=== PATIENT | female | born 1990 | race Two or more races ===

== ENCOUNTER 2024-10-26 13:53 | Outpatient (AMB) | payer MEDICAID, SELFPAY ==
--- NOTE | 2024-10-26 14:03 | PD.GSCLVISIT ---
V[facility] Sign[facility] - [facility] 10/26/24 14:04 Height 1.63 m Height Method Measured Weight 122.668 kg Weight Measurement Method Standing Scale BMI 46.4 BP 112/77 Blood Pressure Source Automatic Cuff Blood Pressure Location Left Upper Arm Position Sitting Respiration 18 Pulse 73 Pulse Source Monitor Temp 97.4 F Temp Source Temporal Artery Scan Pulse Oximetry (%) 96 Oxygen Delivery Method Room Air Med/Allergies Allergies & Medications Allergies No Known Allergies Allergy (Verified 10/26/24 14:05) Medication Reconciliation Unobtainable 10/26/24 [History Confirmed 10/26/24] MA Intake Visit Data Collection New Patient or Established: Established Patient (seen at [facility] within 3 years) Seen by Clinical Staff ONLY (RN/MA): No Reason for Visit:: REFERRAL GALLSTONES Pain Present Currently: No Pain Location: Abdomen Pain Scale Used: Mcmahon-Savage/Numerical Aeronautical Project Engineer Required: Yes PCP or OBGYN visit in last 3 months: Yes Hx Now: No Do You Feel Safe at Home: Yes Authorities Contacted: N/A Smoking Status Smoking Status: Never smoker Immunization / Flu Flu Vaccine in the Last 12 Months: Yes Flu Vaccine Exclusion Criteria: No Exclusion Criteria Past Medical History Social History SMOKING STATUS: Smoking status: Never smoker HPI HPI Narrative 34F presenting with symptomatic cholelithiasis. Patient reports that she has had epigastric pain on and off for years, worsened with eating fatty/greasy foods, and associated with nausea and diarrhea. She denies any fevers. Patient has gone to the ER in [place] and has been told more than once that she has gallstones PMH: Obesity PSH: C-sections Meds: Ibuprofen as needed Allergies: NKDA Social history: Non-smoker Family history: Both grandfathers and an aunt had pancreatic cancer ROS Review of Systems Systems Reviewed: All systems reviewed, normal except as documented Objective/Exam General General Appearance: alert, cooperative and well groomed Resp Respiratory exam: Absent respiratory distress Abdominal Abdominal exam: Present soft; Absent distention or tenderness Assessment & Plan Diagnosis / Problem List (1) Symptomatic cholelithiasis: Status: Acute Assessment & Plan: 34F presenting with signs and symptoms of symptomatic cholelithiasis. I explained benefits/risks of surgery including need for conversion to open, bleeding, infection, injury to nearby structures requiring further procedures which could mean a major biliary reconstruction which would require transfer to a tertiary hospital. I also enumerated risks of postoperative hernia and diarrhea. All questions were answered and patient is agreeable to proceeding Plan: Follow-up ultrasound, patient will have results faxed Will schedule laparoscopic cholecystectomy, possible open MARGARET Office Procedures GNS Level of Care Nursing/Assessment Patient Status: Established Patient Nursing Assessment/Reassesment: Medication Reconciliation, Update PMH in EMR and Vital Signs Coordination of Care: Complex Care and Chronic Disease 1-5, Consent,records obtained, informed consent, Education Simp Pt/Fam, Results/Orders obtained and Staff clarify orders Special Needs: Language special needs Established Patient Charge Established Patient Point Assignment: 90 Established Patient Point Charge: EP Level 3 (80-115) Patient Portal Questionaires Social History Tobacco History Smoking Status: Never smoker Domestic Abuse History Do You Feel Safe at Home: Yes Review of Systems Report any current symptoms Only answer those that you have currently: Past Medical History Past Medical History Have you ever been diagnosed with any of the following:
[2024-10-26 14:04] VITALS: BP 112/77; PULSE 73; RESP 18; TEMP 36.3; O2SAT 96; BMI 46.4
== END 2024-10-26 14:38 | disposition home or self-care (01) ==
PROVIDERS: Supervising Provider Surgery; Visit Provider Surgery
DX: K80.20 Calculus of gallbladder without cholecystitis without obstruction (principal); E66.9 Obesity, unspecified; Z68.42 Body mass index [BMI] 45.0-49.9, adult
CPT/HCPCS: 99213; G0463

== ENCOUNTER 2024-11-11 06:00 | Day surgery (SDC) | payer MEDICAID, SELFPAY ==
[2024-11-10 15:19] VITALS: BMI 41.1
[2024-11-10 17:51] LABS: Anion Gap 9 (7-16); BUN/Creatinine Ratio 11 Ratio (12-20); Blood Urea Nitrogen 8 mg/dL (9-23); Calcium 8.9 mg/dL (8.3-10.6); Carbon Dioxide 24.6 mMol/L (20.0-31.0); Chloride 105 mMol/L (98-107); Creatinine (Component) 0.7 mg/dL (0.6-1.3); Estimated Creatinine Clearance 136.5 mL/min (>60); Glucose 88 mg/dL (74-106); Osmolality,Calculated 274 (275-295); Potassium 4.0 mMol/L (3.4-5.1); Sodium 139 mMol/L (136-145); eGFR > 60 See Note
[2024-11-10 17:52] LABS: HCG,Qualitative Serum Negative
[2024-11-10 17:55] LABS: Basophils # (Auto) 0.1 Thou/mm3 (0.0-0.2); Basophils % (Auto) 0 % (0-2.5); Eosinophils # (Auto) 0.3 Thou/mm3 (0.0-0.5); Eosinophils % (Auto) 2 % (0-10); Hematocrit 39.8 % (36.0-46.0); Hemoglobin 13.2 g/dL (12.0-16.0); Immature Granulocytes Auto 0.06 Thou/mm3 (0.00-0.00); Lymphocytes # (Auto) 2.3 Thou/mm3 (1.0-4.8); Lymphocytes % (Auto) 17 % (10-50); Mean Corpuscular HGB Conc 33.2 g/dl (31.0-37.0); Mean Corpuscular Hemoglobin 29.1 pg (25.0-35.0); Mean Corpuscular Volume 88 fL (80-100); Monocytes # (Auto) 0.7 Thou/mm3 (0.0-0.8); Monocytes % (Auto) 5 % (0-12); Neutrophils # (Auto) 10.3 Thou/mm3 (1.8-7.7); Neutrophils % (Auto) 76 % (37-80); Nucleated Red Blood Cell # 0.00 Thou/mm3 (0.00-0.00); Nucleated Red Blood Cell % 0 /100 WBC (0); Platelet Count 301 Thou/mm3 (140-440); RDW Standard Deviation 42.7 fL (36.4-46.3); Red Blood Count 4.54 Miln/mm3 (4.00-5.20); White Blood Count 13.6 Thou/mm3 (3.6-11.0)
[2024-11-10 18:09] LABS: INR 0.9 (0.9-1.3); Partial Thromboplastin Time 27.6 Seconds (22.0-36.0); Prothrombin Time 10.1 Seconds (9.0-12.2)
[2024-11-11] VITALS (9 sets, daily range): BP systolic 115–152; BP diastolic 60–98; PULSE 76–110; RESP 12–21; TEMP 36.2–36.7; O2SAT 96–100; BMI 46.7
[2024-11-11] MEDS: RINGERS LACTATED 1000 ML 1,000 ML 20 ML IV (06:59)
--- NOTE | 2024-11-11 10:13 | PD.SUROPNT ---
Date of Procedure 11/11/24 Pre Op Diagnosis Symptomatic cholelithiasis Post Op Diagnosis Same Procedure Laparoscopic cholecystectomy Findings Gallbladder with large stone Procedure Description After discussion of risks and benefits, patient was brought to the operating room, SCDs were placed and general anesthesia was induced. She received preoperative antibiotics and was prepped and draped in usual sterile fashion. After timeout a supraumbilical incision was made with a #15 blade and the skin was elevated with towel clamps. A Veress needle was placed into the incision but it did not reach the peritoneum so long Veress needle was used. Proper positioning was confirmed with a drop test and the abdomen was insufflated to 15 mmHg. At that point the Veress needle was exchanged for a 5 mm camera using Visiport technique. There were no signs of injury from the point of entry. 3 additional ports were placed under direct vision, one 12 mm at the epigastrium, one 5 mm right subcostal and one 5 mm right anterior axillary line. Patient was placed in reverse Trendelenburg. The fundus of the gallbladder was grasped and retracted cephalad and the infundibulum was grasped and retracted laterally. Using combination of blunt dissection and electrocautery the critical view of safety was achieved and the cystic duct and cystic artery were clipped and transected in the usual fashion. The gallbladder was removed from gallbladder bed using electrocautery. There was some bleeding from the gallbladder bed which was controlled with electrocautery and direct pressure. Patient was also given TXA and hemostasis was reinforced with Surgicel powder. The specimen was removed in an Endo Catch bag via the epigastric port and the epigastric fascia was closed with a 0 Vicryl suture using a Avelino-Mode. Pneumoperitoneum was released and ports were removed under direct vision. Incisions were irrigated and infiltrated with half percent Marcaine for a total of 30 cc. Incisions were closed with 4-0 Monocryl and reinforced with Dermabond. Patient was extubated and brought to PACU in stable condition Pathology / specimen Other (Gallbladder) Estimated Blood Loss 200 Surgeon Rachel Mathias MD Surgical Staff Operation Date: 11/11/24 08:45 Case Staff ENGLISH LANGUAGE LEARNER TUTOR: Heber Delacruz RN First Assistant: Monisha Lechuga
--- NOTE | 2024-11-11 10:20 | SUR.PHASEI ---
1020: Pt. wakes to name then drifts back to sleep, vitals stable, breathing unlabored, no complaint of pain or nausea, x4 dermabond sites to ABD CDI, no active bleed noted, report recieved from Khoa MAY and Lisandro CLEMENTS.
--- NOTE | 2024-11-11 10:20 | ESDS_ITS ---
Planned Discharge Date 11/11/24 DS: Providers Provider Primary care physician: Physician No Primary/Family Attending Provider on Admission: Rachel Mathias MD Attending Provider on DC: Rachel Mathias MD Discharging Provider: Rachel Mathias MD Diagnosis Discharge Diagnosis (1) Symptomatic cholelithiasis: Status: Acute Problem List Completed Was Problem List Reviewed/Reconciled?: Yes Exam Vital Signs Temp Pulse Resp BP Pulse Ox 98.0 F 77 21 H 118/60 96 11/11/24 06:46 11/11/24 06:46 11/11/24 06:46 11/11/24 06:46 11/11/24 06:46 Discharge Plan Plan Patient Disposition: HOME (Self Care) Prescriptions/Referrals Prescriptions/Med Rec: New oxycodone-acetaminophen [Percocet] 5-325 mg tablet 1 tab PO Q4HR MDD 6 tabs PRN (Reason: pain) Qty: 10 0RF Rx Instructions: Take 1 tablet as needed every 4-6 hours for moderate to severe pain Referrals: No Primary/Family,Physician [Primary Care Provider] - Rachel Mathias MD [Physician] - (You will receive a phone call to confirm a follow-up appointment with me in 2 weeks) Patient/Caregiver Discharge Instructions Other Discharge Activity Instructions:: Avoid lifting objects greater than 10 pounds for 6 weeks You may resume showering in 2 days, on 11/13 It is okay to get incisions wet at that time, pat dry after Avoid bathing or swimming for 2 weeks During the surgery we fill your abdomen with air in order to see the structures. Some of this air tends to linger and cause pain that is referred to the shoulder as well as pain with deep breaths. This will get better with time. Being out of bed and walking will help the air to absorb faster If you develop worsening pain, nausea/vomiting, fever or signs of jaundice please seek care in ER Starting tomorrow, 11/12 you may take ibuprofen as needed between doses of Percocet or instead of Percocet if pain is not severe DO NOT take ibuprofen or any other NSAID today 11/11 Education Materials: Anesthesia: General Anesthesia, Surgery Anesthesia After, Cholecystectomy Laparoscopic Dc, Preventing Surgical Site Infections, Skin Adhesive Wound Care Instructions, [facility] General Discharge-Monegasque Print Language: Monegasque Stand Alone Forms: Carolyn Award Info., Patient Portal Info Letter Results Results: Laboratory Laboratory results: results reviewed Results: Imaging US - abdomen: report reviewed PROCEDURES: Procedure Date 11/11/24 Procedures Laparoscopic cholecystectomy
[2024-11-11] MEDS: HYDROmorphone INJ 2 MG/ML VIAL 0.4 MG IVP ×3 (10:47→11:06)
[2024-11-11] MEDS: ONDANSETRON INJ 2 MG/ML INJ 2 ML 4 MG IVP (11:02)
--- NOTE | 2024-11-11 12:00 | SUR.PHASEII ---
1145: Pt awake, alert, able to follow commands, breathing unlabored, dressing to abdomen clean, dry, and intact, per Renee CLEMENTS-pt on room air for 20 minutes with oxygen saturations WNL, discharge instructions given by Renee CLEMENTS, report from Renee CLEMENTS 1200: pt able to dress self and ambulate with steady gait to wheelchair, pt discharged via wheelchair with all belongings and copies of discharge paperwork.
== END 2024-11-11 12:00 | disposition home or self-care (01) ==
PROVIDERS: Referring Provider Surgery; Visit Provider Surgery
PROC: 0FT44ZZ Resection of Gallbladder, Percutaneous Endoscopic Approach (ICD-10-PCS; CPT 47562; principal; 2024-11-11 08:45)
DX: K80.10 Calculus of gallbladder with chronic cholecystitis without obstruction (principal)
CPT/HCPCS: 47562; 36415; 80048; 84703; 85025; 85610; 85730; A4217; A4649; J0131; J0694; J1171; J2250; J2405; J2704; J3010; J3490; J7120; J1596

== ENCOUNTER 2024-11-23 10:48 | Outpatient (AMB) | payer MEDICAID, SELFPAY ==
--- NOTE | 2024-11-23 10:55 | PD.GSCLVISIT ---
Vital Signs - [facility] 11/23/24 10:56 Height 1.63 m Height Method Measured Weight 119.493 kg Weight Measurement Method Standing Scale BMI 45.2 BP 108/74 Blood Pressure Source Automatic Cuff Blood Pressure Location Left Upper Arm Position Sitting Respiration 18 Pulse 87 Pulse Source Monitor Temp 97.3 F Temp Source Temporal Artery Scan Pulse Oximetry (%) 96 Oxygen Delivery Method Room Air Med/Allergies Allergies & Medications Allergies No Known Allergies Allergy (Verified 11/23/24 10:57) Medication Reconciliation oxycodone-acetaminophen 5 mg-325 mg tablet (Percocet) 1 tab PO Q4HR PRN pain #10 tabs 11/11/24 [Rx Confirmed 11/23/24] MA Intake Visit Data Collection New Patient or Established: Established Patient (seen at [facility] within 3 years) Seen by Clinical Staff ONLY (RN/MA): No Reason for Visit:: LAB NADYA POST OP Pain Present Currently: Yes Pain Location: Abdomen Pain scale:: 3 Pain Scale Used: Mcmahon-Savage/Numerical Reporting Process Consultant Required: Yes PCP or OBGYN visit in last 3 months: Yes Hx Now: No Do You Feel Safe at Home: Yes Authorities Contacted: N/A Smoking Status Smoking Status: Never smoker Immunization / Flu Flu Vaccine in the Last 12 Months: Yes Flu Vaccine Exclusion Criteria: Already Received Past Medical History Past Medical History NEUROLOGIC: Negative Neurological Disorders or Seizures CARDIAC: Negative Cardiac Disorders or Congestive Heart Failure RESPIRATORY: Negative Chronic Obstructive Pulmonary Disease (COPD) GASTROINTESTINAL: Positive Gastrointestinal Disorders and Gall Bladder Disease; Negative Hepatitis GENITOURINARY: Negative Genitourinary Disorders or Renal Disease REPRODUCTIVE: Positive Previous Pregnancies ENDOCRINE: Negative Endocrine Disorders, Diabetes Mellitus Type 1 or Diabetes Mellitus Type 2 HEMATOLOGIC: Negative Blood Disorders OTHER HISTORY: Positive Chicken Pox and Mumps; Negative Autoimmune Disease, Blood Transfusions, Anesthesia Reactions or Cancer Family History FAMILY HISTORY: Positive Family Surgery; Negative Family Psychiatric Problems, Family Respiratory Disorders, Family Cardiac Disorders, Family Gastrointestinal Problems, Family Cancer or Family Anesthesia Reaction Surgical History SURGICAL: Positive Section (3) Social History SMOKING STATUS: Smoking status: Never smoker ALCOHOL: Alcohol Intake: Never HOUSING: Housing: House HPI HPI Narrative Spoke to pt with in-person science interpreter 34F referred for symptomatic cholelithiasis s/p lap nadya 11/11 here for planned follow up. Pt states at first she had significant pain especially with deep breaths, but this has improved and she is not currently needing any medications. She has had occasional diarrhea but no nausea/vomiting or fever and is eating well though has avoided greasy and fatty foods ROS Review of Systems Systems Reviewed: All systems reviewed, normal except as documented Objective/Exam General General Appearance: alert, cooperative and well groomed Resp Respiratory exam: Absent respiratory distress Abdominal Abdominal exam: Present soft and incision (c/d/i, no erythema, no fluctuance or tenderness); Absent distention or tenderness Results Pathology of gallbladder reviewed Assessment & Plan Diagnosis / Problem List (1) Symptomatic cholelithiasis: Status: Acute Assessment & Plan: 34F s/p lap nadya 11/11, recovering well overall Plan: Avoid strenuous activity including lifting objects >10lbs for 6 weeks postop F/u as needed Office Procedures GNS Level of Care Nursing/Assessment Patient Status: Established Patient Nursing Assessment/Reassesment: Medication Reconciliation, Update PMH in EMR and Vital Signs Coordination of Care: Complex Care and Chronic Disease 1-5, Consent,records obtained, informed consent, Education Simp Pt/Fam, Results/Orders obtained and Staff clarify orders Special Needs: Language special needs Established Patient Charge Established Patient Point Assignment: 90 Established Patient Point Charge: EP Level 3 (80-115) Patient Portal Questionaires Social History Living Situation History Housing: House Tobacco History Smoking Status: Never smoker Alcohol History Alcohol Intake: Never Domestic Abuse History Do You Feel Safe at Home: Yes Review of Systems Report any current symptoms Only answer those that you have currently: Past Medical History Past Medical History Have you ever been diagnosed with any of the following: Neurological Problems Seizures: No Cardiology Problems Congestive Heart Failure: No Respiratory Problems Chronic Obstructive Pulmonary Disease (COPD): No Stomache/Intestinal Problems Hepatitis: No Gall Bladder Disease: Yes Genital/Urinary Problems Renal Disease: No Reproductive Problems Previous Pregnancies: Yes Endocrine Problems Diabetes Mellitus Type 1: No Diabetes Mellitus Type 2: No Other Problems Autoimmune Disease: No Blood Transfusions: No Anesthesia Reactions: No Chicken Pox: Yes Mumps: Yes Cancer: No
[2024-11-23 10:56] VITALS: BP 108/74; PULSE 87; RESP 18; TEMP 36.3; O2SAT 96; BMI 45.2
== END 2024-11-23 11:30 | disposition home or self-care (01) ==
PROVIDERS: Supervising Provider Surgery; Visit Provider Surgery
DX: Z48.815 Encounter for surgical aftercare following surgery on the digestive system (principal)
CPT/HCPCS: 99213; G0463